=== PATIENT | male | born 1975 | race Two or more races ===

== ENCOUNTER 2024-09-12 15:20 | Emergency (ER) | payer OTHER ==
[~2024-09-12] VITALS: Ht 182.9 cm; Wt 82.6 kg
[2024-09-12] MEDS ORDERED: METHYLPREDNISOLONE SOD SUCC 125 MG VIAL IV ONE (16:45)
[2024-09-12] MEDS ORDERED: GUAIFENESIN 200 MG/10 ML BLIST.PACK PO ONE (16:45)
[2024-09-12] MEDS ORDERED: ALBUTEROL SULFATE 3 ML/2.5 MG AMPUL.NEB IH SCH (16:45)
[2024-09-12] MEDS ORDERED: MAGNESIUM SULFATE IN WATER 2 GM/50 ML PIGGYBAG IV ONE (17:00)
[2024-09-12 17:29] LABS: BASO % 0.7 % (0.1-1.2); EOS # 0.07 (0.04-0.54); EOS % 0.9 % (0.7-7.0); HEMATOCRIT 45.7 % (40.1-51.0); LYMPH # 1.16 (1.18-3.74); LYMPH % 15.3 % (19.3-53.1); MONO # 1.08 (0.24-0.82); NEUT # 5.18 (1.56-6.13); NEUT % 68.5 % (34.0-71.1); PLATELET COUNT 250 K/uL (163-369); RED BLOOD COUNT 5.34 M/uL (4.63-6.08); RED CELL DISTRIBUTION WIDTH 13.2 % (11.6-14.4)
[2024-09-12 17:30] LABS: MONO % 14.3 % (4.7-12.5)
[2024-09-12 17:40] LABS: COVID-19 AG NEGATIVE (NEGATIVE)
[2024-09-12 17:52] LABS: INFLUENZA A AG NEGATIVE (NEGATIVE)
== END 2024-09-12 19:26 | disposition home or self-care (01) ==
LOC: ER 15:20
PROVIDERS: General Practice
DX: J45.909 Unspecified asthma, uncomplicated (principal); B34.9 Viral infection, unspecified; J06.9 Acute upper respiratory infection, unspecified; Z88.6 Allergy status to analgesic agent; Z88.0 Allergy status to penicillin; Z20.822 Contact with and (suspected) exposure to COVID-19